=== PATIENT | male | born 1955 | race Caucasian/White ===

== ENCOUNTER 2019-04-28 08:45 | Outpatient (CLI) | payer MEDICARE, BC | END 2019-04-28 08:46 | disposition short-term general hospital (02) | LOC: EMS 08:45 | PROVIDERS: ATTEND Surgery | DX: M54.9 Dorsalgia, unspecified (principal); R53.1 Weakness; R29.6 Repeated falls; R47.81 Slurred speech; R20.0 Anesthesia of skin; W18.39XA Other fall on same level, initial encounter; Y92.009 Unspecified place in unspecified non-institutional (private) residence as the place of occurrence of the external cause | CPT/HCPCS: A0425; A0429 ==

== ENCOUNTER 2020-07-29 15:17 | Outpatient (CLI) | payer MEDICARE, BC | END 2020-07-29 15:18 | disposition EMS.NT | LOC: EMS 15:17 | PROVIDERS: ATTEND Surgery | DX: R55 Syncope and collapse (principal) ==